=== PATIENT | male | born 1960 | race Caucasian/White ===

== ENCOUNTER 2019-07-26 11:47 | Day surgery (SDC) | payer OTHER, SELFPAY ==
--- NOTE | 2019-07-26 | PATH_ITS ---
[facility] Accession Number: [id number] . 01 Material submitted: . PART A: ileum - POLYP - ILEUM BIOPSY PART B: colon - POLYP ASCENDING COLON AT 65 CM PART C: body - POLYP AT 20 CM . 02 Diagnosis: A. Ileal Polyp, Biopsy: Ileal mucosa with prominent benign lymphoid aggregate. Negative for active inflammation, granulomata, dysplasia or malignancy. . B. Ascending Colon at 65 cm, Polyp: Tubular adenoma. . C. Colon at 20 cm, Polyp: Tubular adenoma. MRV 07/27/2019 1543 Local . 02 Electronically signed: . John Edward MD, PhD, Pathologist NPI- [id number] . 01 Gross description: . Part A: POLYP - ILEUM BIOPSY: Received in formalin are 3 fragment(s) of ruiz, soft tissue measuring 0.4 x 0.4 x 0.2 cm to 0.1 x 0.1 x 0.1 cm submitted entirely in 1 cassette(s) Part B: POLYP ASCENDING COLON AT 65 CM: Received in formalin is 1 fragment(s) of ruiz, soft tissue measuring 0.5 x 0.4 x 0.2 cm submitted entirely in 1 cassette(s) Part C: POLYP AT 20 CM: Received in formalin are multiple fragment(s) of ruiz, soft tissue measuring 0.5 x 0.5 x 0.2 cm in aggregate submitted entirely in 1 cassette(s) /QBJ 07/26/20192010 Local . 02 Pathologist provided ICD-10: D12.2, D12.6 . 02 CPT . 791292, 497983, 216171 Performed at: [address] [facility], [place], [place] [id number] MD Tnoi Christian MD Phone: [phone] Performed at: 02 [facility] [address] [place] [id number] MD Shelley Murguia MD Phone: [phone]
[2019-07-26 12:12] VITALS: BP 153/93; PULSE 72; RESP 16; TEMP 36.4; O2SAT 90; BMI 25.7
--- NOTE | 2019-07-26 12:35 | PM.HP.1 ---
History of Present Illness History of Present Illness Date Patient Seen: 07/26/19 Time Patient Seen: 12:35 Chief complaint: [id number] Narrative: This is a 59 yo man with average risk for colon cancer. Here for his ten year screening colonoscopy. He had a colonoscopy at age 48 which was normal, per the patient. He denies Melena, hematochezia, unexplained weight loss, abdominal pain. He denies any history of chest pain, heart attack or stroke. He has COPD, but does not use oxygen or a daily inhaler. He says that he has good exercise tolerance. ROS: Thirteen system review is negative other than as mentioned below and in HPI. PE: GENERAL: Well groomed and cooperative. Appears stated age. Answers questions promptly and appropriately. Vital signs noted. HENT: Normocephalic, atraumatic. Hearing intact. Oral mucosa is pink and moist. EYES: Conjunctiva pink, sclera white, no periorbital swelling. CARDIOVASCULAR: Regular rate. No pedal edema. RESPIRATORY: Normal respiratory rate, breathing comfortably on room air. GASTROINTESTINAL: Abdomen soft and non-distended GENITALURINARY: No flank tenderness. SKIN: Warm, dry, soft, appropriate color for ethnicity. No other lesions, rashes, or wounds. NEURO: Alert and Oriented X 3. Good coordination. No sensory deficits, or cognitive issues. PSYCH: Appropriate affect and mood. Home meds: Diltiazem 240 mg once daily Hydrochlorothiazide 25 mg once daily Metoprolol 25 mg twice daily Patient History Medical History (Updated 07/26/19 @ 12:44 by Marli Pascual MD) COPD (chronic obstructive pulmonary disease) (Acute) Hypertension (Acute) Kidney stone (Acute) Family History (Updated 07/26/19 @ 12:43 by Marli Pascual MD) Other CAD (coronary artery disease) Hypertension Social History household members: spouse Family & Social History Family History (Updated 07/26/19 @ 12:43 by Marli Pascual MD) Other CAD (coronary artery disease) Hypertension Social History: household members spouse Exam Vital Signs (past 8 hours): - 07/26/19 12:12 Temperature 97.5 F L Pulse Rate 72 Respiratory Rate 16 Blood Pressure 153/93 H Pulse Oximetry 90 L Oxygen Delivery Method Room Air Assessment & Plan Assessment and plan (1) Colon cancer screening: Problem details: Patient is here for her 10 year screening colonoscopy. He has no significant personal or family history relative to colon cancer risk. Risks and benefits of this procedure were discussed including risk of bleeding, perforation, and risks of anesthesia. Patient desires to proceed With his colonoscopy. Plan: Procedural sedation and colonoscopy with possible biopsy Current visit: Yes Status: Acute
[2019-07-26] MEDS: ONDANSETRON 4 MG/2 ML INJ IV (14:20)
--- NOTE | 2019-07-26 14:57 | PM.OP.ENDO ---
Operative Date/Time/Diagnoses Date of procedure: 07/26/19 Time of procedure: 14:58 Pre-op diagnosis: Average risk for colon cancer Post-op diagnosis: other (multiple polyps) Procedure & Clinicians Study performed: Colonoscopy and polypectomtomy Indications: Average risk for colon cancer, ten year repeat colonoscopy screening Surgeon: Marli Pascual Procedure Notes SCOAP/Timeout: Performed Procedure in detail: The patient was brought to the room and placed in left lateral decubitus position with all bony prominences padded. A time-out was performed and then the patient was given procedural sedation starting with 5 mg of Versed and 100 mg of fentanyl. Vitals were monitored throughout the procedure and remained stable. Once adequately sedated the procedure was begun. A rectal exam was performed revealing large external hemorrhoids. The colonoscope was then introduced to the rectum and advanced to the cecum in the usual fashion. The cecum was identified by the appendiceal orifice, the mucosal try fold, and the ileocecal valve. Throughout the procedure the patient was continually desatting and his abdominal breathing made it impossible to steady the scope in order to safely remove polyps. Several polyps were seen, but only 2 were removed due to this risk. In addition a large fold prolapsing from the ileum was biopsied. A large fold of ileum was seen flopping out of the ileocecal valve, suspicious for mucosal abnormality or polyp. Because of the tight turn of the ileocecal valve I was not able to see the base of this fold. Multiple attempts were made to view the base of the fold. Ultimately in a decided to biopsy it. This was biopsied with cold forceps. Large polyps were removed at 65 cm and 20 cm with hot snare polyps were seen and left behind at 65 cm, 60 cm, 15 cm and on the anal verge. The polyps were between 2 mm and 1 cm. The scope was then retracted while rotating side to side and examining each mucosal fold. In addition to the polyps large diverticula were seen throughout the sigmoid colon. No active diverticulitis was seen At the conclusion procedure retroflexion was performed and grade 1 internal hemorrhoids with out stigmata of recent bleeding. The scope was then withdrawn from the rectum the procedure was concluded. The patient was transferred to the PACU in stable condition at the conclusion of the procedure. Scope withdrawal time: 46 Sedation minutes: 64 Findings: diverticulosis and polyp Specimen(s): other (ileal polyp biopsy with cold forceps; ascending colon polyp removed at 65cm with hot snare; rectosigmoid polyp removed at 20cm with hot snare, multiple polyps left behind because of patient intolerance of procedure (65cm , two at 60cm, 15cm)) Complications: none Post-procedure Plan for aftercare: Patient will need repeat colonoscopy in the next 1-2 months with general anesthesia due to COPD, desaturation during procedure, and inability to remain still under sedation (deep breathing keeping colon in constant motion, too dangerous to retrieve polyps, high risk for perforation). A letter will be sent regarding pathology. Colonoscopy with general anesthesia will need to be scheduled in the next 1-2 months. Follow up: weeks Disposition: PACU
[2019-07-26] MEDS: fentaNYL 250 MCG/5 ML INJ IV (15:00)
[2019-07-26] MEDS: MIDAZOLAM 5 MG/5 ML VIAL IV (15:01)
[2019-07-26 15:08] VITALS: BP 103/72; PULSE 59; RESP 16; TEMP 36.9; O2SAT 96
[2019-07-26 15:13] VITALS: BP 113/75; PULSE 60; RESP 19; O2SAT 96
[2019-07-26 15:17] VITALS: BP 136/70; PULSE 62; RESP 14; O2SAT 98
[2019-07-26 15:19] VITALS: BP 129/83; PULSE 62; RESP 15; TEMP 36.2; O2SAT 93
== END 2019-07-26 15:38 | disposition home or self-care (01) ==
PROVIDERS: PCP Physician Assistant; Visit Provider Surgery
PROC: 0DJD8ZZ Inspection of Lower Intestinal Tract, Via Natural or Artificial Opening Endoscopic (ICD-10-PCS; CPT 45378; principal; 2019-07-26 13:00)
DX: Z12.11 Encounter for screening for malignant neoplasm of colon (principal); J44.9 Chronic obstructive pulmonary disease, unspecified; K57.30 Diverticulosis of large intestine without perforation or abscess without bleeding; K64.0 First degree hemorrhoids; D12.2 Benign neoplasm of ascending colon; D12.6 Benign neoplasm of colon, unspecified
CPT/HCPCS: 45385; 45380; 99152; 99153; J2250; J2405; J3010

== ENCOUNTER → 2022-10-07 13:00 | Outpatient (CLI) | payer OTHER, SELFPAY ==
--- NOTE | 2022-10-07 | DI.NM.S_ITS ---
PROCEDURE: NM PAOLO PERF SPECT R&S PHARM Rest and pharmacological stress myocardial perfusion SPECT with gated imaging and ejection fraction RADIOPHARMACEUTICAL: 26.1 mCi Tc-99m tetrafosmin IV at rest and 26.5 mCi Tc-99m tetrafosmin IV at peak effect of pharmacological stress. [id number]-pzhetxnd was performed. INDICATIONS: Essential (primary) hypertension TECHNIQUE: Radiopharmaceutical was injected at peak stress test, and also at rest. SPECT images were obtained. SPECT myocardial perfusion images were displayed in short axis, horizontal long axis, and vertical long axis views. Gated images were reviewed using ForeUp software. COMPARISON: None. CARDIAC STRESS: A pharmacologic stress test was performed under the supervision of an attending staff, using an infusion of lexiscan 0.4mg IV x1. Hemodynamic data: There is normal blood pressure and heart rate response to pharmacologic stress. Symptoms: The patient denied anginal chest pain. Aminophylline: none EKG: No diagnostic changes of ischemia; frequent PVCs during the study.. FINDINGS: Raw data: There is good myocardial uptake of radiotracer. No significant motion artifacts. Cxen-df-xgpaf ratio is 0.34 (normal is less than 0.38 for tetrafosmin tracer). Left ventricle function: Gated images demonstrate normal left ventricular wall thickening. No segmental wall motion abnormalities. No transient ischemic dilation; TID is 1.02 (normal less than 1.3). Left ventricle resting end diastolic volume is 109 mL. Left ventricle stress ejection fraction is 59%; normal range is above 45%. Myocardial perfusion: There is a mildly intense fixed apical defect that persists on prone imaging, suggesting small prior non-transumral infarction. No ischemia. IMPRESSION: Abnormal pharmaceutical nuclear stress test 1) There is a mildly intense fixed apical defect that persists on prone imaging, suggesting small prior non-transumral infarction. No ischemia. 2) Normal left ventricular size, wall motion, and systolic function (EF post stress 59%). 3) No ST changes with lexiscan. 4) Frequent PVCs during the study. 5) No angina during the study. 6) No prior nuclear stress test avaliable for comparison. Dictated by: Adali Comer MD on 10/08/2022 at 16:04 Approved by: Adali Comer MD on 10/08/2022 at 16:07
[2022-10-07 13:47] LABS: COVID19 -Nasal RAPID Negative (Negative)
== END ==
PROVIDERS: Referring Provider Internal Medicine; Visit Provider Internal Medicine
DX: Z01.89 Encounter for other specified special examinations (principal); R94.39 Abnormal result of other cardiovascular function study; I10 Essential (primary) hypertension; R06.00 Dyspnea, unspecified; I25.10 Atherosclerotic heart disease of native coronary artery without angina pectoris; Z20.822 Contact with and (suspected) exposure to COVID-19; Z82.49 Family history of ischemic heart disease and other diseases of the circulatory system
CPT/HCPCS: 78452; 87635; 93016; 93017; 93018; A9502; J2785